=== PATIENT | male | born 1985 | race Caucasian/White ===

== ENCOUNTER 2016-10-22 17:00 | Emergency (ER) | payer BC ==
[2016-10-22 17:03] VITALS: BMI 23.5
--- NOTE | 2016-10-22 17:13 | PDOC ---
History of Present Illness <Raúl Espinal - Last Filed: 10/22/16 18:50> - History of Present Illness Initial Comments: 10/22/16 17:22 The patient is a 31 year old male with no past medical hx who presents to the ED complaining of intermittent chest pain for 1 week. He reports mild associated SOB. The patient reports he was sleeping on his left side when he woke up from the pain. The pain is localized to his left upper chest. He notes the pain was initially intermittent but now the pain is constant. He states the pain is exacerbated with inspiration. The chest pain is reproducible with pressure. The patient denies fever, chills The patient denies nausea, vomiting, abdominal pain <Elvia Fuller - Last Filed: 10/22/16 18:53> - General Chief Complaint: Chest Pain Stated Complaint: CHEST PAIN Past History - Past Medical History Other medical history: denies - Psycho/Social/Smoking Cessation Hx Suicidal Ideation: No Smoking History: Never smoked Information on smoking cessation initiated: No Hx Alcohol Use: No Drug/Substance Use Hx: No Substance Use Type: None <Raúl Espinal - Last Filed: 10/22/16 18:50> <Elvia Fuller - Last Filed: 10/22/16 18:53> - Past Medical History Allergies/Adverse Reactions: Allergies Allergy/AdvReac Type Severity Reaction Status Date / Time No Known Allergies Allergy Verified 10/22/16 17:03 Home Medications: Ambulatory Orders NK [No Known Home Medication] 10/22/16 Review of Systems - Review of Systems Able to Perform ROS?: Yes Comments:: 10/22/16 17:23 GENERAL/CONSTITUTIONAL: No fever or chills. No weakness. HEAD, EYES, EARS, NOSE AND THROAT: No change in vision. No ear pain or discharge. No sore throat. CARDIOVASCULAR: +Chest pain, shortness of breath. RESPIRATORY: No cough, wheezing, or hemoptysis. GASTROINTESTINAL: No nausea, vomiting, diarrhea or constipation. GENITOURINARY: No dysuria, frequency, or change in urination. MUSCULOSKELETAL: No joint or muscle swelling or pain. No neck or back pain. SKIN: No rash NEUROLOGIC: No headache, vertigo, loss of consciousness, or change in strength/ sensation. ENDOCRINE: No increased thirst. No abnormal weight change. HEMATOLOGIC/LYMPHATIC: No anemia, easy bleeding, or history of blood clots. ALLERGIC/IMMUNOLOGIC: No hives or skin allergy. <JonnyJuan LuisElvia - Last Filed: 10/22/16 18:53> *Physical Exam - Vital Signs Last Vital Signs Temp Pulse Resp BP Pulse Ox 97.4 F L 81 18 144/94 98 10/22/16 17:01 10/22/16 17:01 10/22/16 17:01 10/22/16 17:01 10/22/16 17:01 <Raúl Espinal - Last Filed: 10/22/16 18:50> - Vital Signs Last Vital Signs Temp Pulse Resp BP Pulse Ox 97.4 F L 81 18 144/94 98 10/22/16 17:01 10/22/16 17:01 10/22/16 17:01 10/22/16 17:01 10/22/16 17:01 - Physical Exam Comments: 10/22/16 17:24 GENERAL: Awake, alert, and fully oriented, in no acute distress HEAD: No signs of trauma EYES: PERRLA, EOMI, sclera anicteric, conjunctiva clear ENT: Auricles normal inspection, hearing grossly normal, nares patent, oropharynx clear without exudates. Moist mucosa NECK: Normal ROM, supple, no lymphadenopathy, JVD, or masses LUNGS: Breath sounds equal, clear to auscultation bilaterally. No wheezes, and no crackles CHEST: +Reproducible tenderness to chest wall with palpation HEART: Regular rate and rhythm, normal S1 and S2, no murmurs, rubs or gallops ABDOMEN: Soft, nontender, normoactive bowel sounds. No guarding, no rebound. No masses EXTREMITIES: Normal range of motion, no edema. No clubbing or cyanosis. No cords, erythema, or tenderness NEUROLOGICAL: Cranial nerves II through XII grossly intact. Normal speech, normal gait SKIN: Warm, Dry, normal turgor, no rashes or lesions noted. <JonnyJuan LuisElvia - Last Filed: 10/22/16 18:53> Heart Score/ECG Review - ECG Impressions Comment:: 10/22/16 17:[address] Espinal NSR at a rate of 80 BPM. Possible left atrial enlargement <Elvia Fuller - Last Filed: 10/22/16 18:53> ED Treatment Course - LABORATORY CBC & Chemistry Diagram: 10/22/16 17:35 10/22/16 17:35 <Raúl Espinal - Last Filed: 10/22/16 18:50> - LABORATORY CBC & Chemistry Diagram: 10/22/16 17:35 10/22/16 17:35 - RADIOLOGY Radiograph Interpretation: 10/22/16 18:42 Chest XRAY Clinical information: Chest pain. Chest x ray, PA and Lateral Comparison: No prior is available for comparison The cardiac silhouette is within normal limits in size. The lung is clear. Mediastinum and visualized osseous structures appear grossly intact . Impression Unremarkable examination without evidence of acute lung disease. Reported By: Angelo Cedeño MD 10/22/16 180 <Elvia Fuller - Last Filed: 10/22/16 18:53> Medical Decision Making - Medical Decision Making 10/22/16 18:53 The patient is a 31 year old male with no past medical hx who presents to the ED complaining of intermittent chest pain for 1 week. The plan is to order labs , CXR, EKG. <Elvia Fuller - Last Filed: 10/22/16 18:53> *DC/Admit/Observation/Transfer - Attestations Physician Attestion: 10/22/16 17:13 I, Dr. Raúl Espinal, attest that this document has been prepared under my direction and personally reviewed by me in its entirety. I further attest, that it accurately reflects all work, treatment, procedures and medical decision -making performed by me. <Raúl Espinal - Last Filed: 10/22/16 18:50> - Attestations Scribe Attestion: 10/22/16 17:23 Documentation prepared by Elvia Fuller, acting as medical supply technician for aRúl Espinal MD/. <Elvia Fuller - Last Filed: 10/22/16 18:53> Diagnosis at time of Disposition: Anterior chest wall pain - Referrals Referrals: Robert Lewis [Primary Care Provider] - - Patient Instructions Printed Discharge Instructions: DI for Atypical Chest Pain, DI for Musculoskeletal Pain Additional Instructions: Royce- Rest as much as possible, Follow up with your doctor next week. Return to us if worse or new symptoms occur. Motrin is probably best to take for pain. Best- Dr. Raúl Espinal
[2016-10-22 18:02] LABS: BASOPHIL 1.3 % (0-2.0); MCH 29.2 pg (25.7-33.7); MCHC 34.4 g/dl (32.0-35.9); MEAN CELL VOLUME 85.1 fl (80-96); RDW 13.3 % (11.9-15.9); WHITE BLOOD COUNT 5.6 K/mm3 (4.0-10.0)
[2016-10-22] MEDS ORDERED: IBUPROFEN 400 MG TABLET (FP) PO ONE ×2 (18:22→18:41)
[2016-10-22 18:26] LABS: INR 1.14 (0.82-1.09)
[2016-10-22 18:34] LABS: ALBUMIN 4.1 g/dl (3.4-5.0); ANION GAP 9 (8-16); BILIRUBIN,TOTAL 0.4 mg/dL (0.2-1.0); CALCIUM 8.4 mg/dL (8.5-10.1); CO2 28 mmol/L (21-32); CREATININE 0.8 mg/dL (0.7-1.3); GLUCOSE,RANDOM 93 mg/dL (74-106); SGPT/ALT 30 U/L (12-78); TOT PROT 7.1 g/dl (6.4-8.2)
[2016-10-22 18:38] LABS: ALK PHOS 106 U/L (45-117); SGOT/AST 23 U/L (15-37); TROPONIN I < 0.02 ng/ml (0.00-0.05)
[2016-10-22 19:21] LABS: D-DIMER < 200 ng/ml (<200-235)
[2016-10-22 19:25] LABS: MEAN PLT VOLUME 11.8 fl (7.5-11.1); PLATELET COUNT 138 K/MM3 (134-434)
[2016-10-22 19:26] LABS: PLATELET COMMENT2 FEW GIANT PLTS; PLATELET ESTIMATE ADEQUATE (NORMAL)
[2016-10-22 20:02] VITALS: BP 128/89; PULSE 77; TEMP 98.5
--- NOTE | 2016-10-26 22:19 | EKG ---
Test Reason : Blood Pressure : / mmHG Vent. Rate : 080 BPM Atrial Rate : 080 BPM P-R Int : 138 ms QRS Dur : 084 ms QT Int : 360 ms P-R-T Axes : 066 065 053 degrees QTc Int : 415 ms NORMAL SINUS RHYTHM POSSIBLE LEFT ATRIAL ENLARGEMENT BORDERLINE ECG NO PREVIOUS ECGS AVAILABLE Confirmed by SUZI MEJIA, SAMMY ([id number]) on 10/26/2016 10:18:59 PM Referred By: Confirmed By:SAMMY ARCHER MD
== END 2016-10-22 20:15 | disposition home or self-care (01) ==
LOC: JER 17:00
DX: R07.89 Other chest pain (principal)
CPT/HCPCS: 36415; 71020-TC; 80053; 82550; 84484; 85025; 85379; 85610; 93005; 93010; 99284-25